=== PATIENT | female | born 1955 | race Caucasian/White ===

== ENCOUNTER 2019-03-15 13:58 | Inpatient (IN) ==
[2019-03-15 14:43] LABS: Basophils # 0.1 K/mcL (0.0-0.2); Basophils % 0.7 %; Eosinophils # 0.1 K/mcL (0.0-0.6); Eosinophils % 1.6 %; Hematocrit 40.8 % (35.3-44.9); Hemoglobin 12.8 g/dL (11.5-15.4); Immature Granulocytes % 0.1 % (0-4); Lymphocytes # 1.1 K/mcL (0.6-4.6); Lymphocytes % 16.4 %; Mean Corpuscular HGB Conc 31.4 g/dL (31.6-35.5); Mean Corpuscular Hemoglobin 27.1 pg (28.0-33.3); Mean Corpuscular Volume 86.3 fL (83.0-100.0); Mean Platelet Volume 11.6 fL (9.4-12.4); Monocytes # 0.5 K/mcL (0.0-1.3); Monocytes % 7.5 %; Neutrophils # 5.1 K/mcL (1.6-8.9); Platelet Count 207 K/mcL (140-400); Red Blood Count 4.73 M/mcL (3.82-4.97); Segmented Neutrophils % 73.7 %; White Blood Count 6.9 K/mcL (4.3-11.1)
[2019-03-15 15:23] LABS: BUN/Creatinine Ratio 17 (6-26); Blood Urea Nitrogen 16 mg/dL (8-23); Calcium 9.1 mg/dL (8.6-10.3); Carbon Dioxide 41 mEq/L (23-29); Chloride 89 mEq/L (98-107); Glucose 151 mg/dL (70-105); Osmolality,Calculated 290 (280-300); Potassium 2.1 mEq/L (3.5-5.1); Sodium 138 mEq/L (136-145); eGFR For African Americans > 60 (> 60); eGFR For Non-African Americans > 60 (> 60)
[2019-03-15] MEDS ORDERED: *HR* HYDROcodone/Acet 5/325 mg TABLET PO ONE (15:52)
[2019-03-15] MEDS ORDERED: Potassium Chloride 20 MEQ, Lidocaine 1% 2 ML in 0.9 % Sodium Chloride 250 ML IVPB ONE ×2 (16:11→19:00)
[2019-03-15] MEDS ORDERED: Naloxone 0.4 MG/ML INJ IVP PRN (17:40)
[2019-03-15 17:45] LABS: Magnesium 1.8 mg/dL (1.6-2.6)
[2019-03-15] MEDS ORDERED: Dextrose Gel 15 GM/37.5 ML TUBE PO PRN ×2 (17:55)
[2019-03-15] MEDS ORDERED: D5% in Water 1,000 ML IVC PRN (17:55)
[2019-03-15] MEDS ORDERED: *HR* Dextrose 50 % in Water (Syg) 50 ML SYRINGE IVP PRN (17:55)
[2019-03-15] MEDS: *HR* Dabigatran 150 MG CAPSULE PO SCH (20:48)
[2019-03-15 21:29] LABS: BUN/Creatinine Ratio 19 (6-26); Blood Urea Nitrogen 18 mg/dL (8-23); Calcium 8.7 mg/dL (8.6-10.3); Carbon Dioxide 40 mEq/L (23-29); Chloride 90 mEq/L (98-107); Glucose 226 mg/dL (70-105); Osmolality,Calculated 297 (280-300); Potassium 2.2 mEq/L (3.5-5.1); Sodium 139 mEq/L (136-145); eGFR For African Americans > 60 (> 60); eGFR For Non-African Americans 57 (> 60)
[2019-03-16] MEDS ORDERED: Potassium Chloride 20 MEQ, Lidocaine 1% 2 ML in 0.9 % Sodium Chloride 250 ML IVPB ONE (02:29)
[2019-03-16 07:19] LABS: Basophils % 0.6 %; Eosinophils # 0.2 K/mcL (0.0-0.6); Eosinophils % 2.9 %; Hematocrit 41.1 % (35.3-44.9); Hemoglobin 12.4 g/dL (11.5-15.4); Immature Granulocytes % 0.4 % (0-4); Lymphocytes # 1.1 K/mcL (0.6-4.6); Lymphocytes % 15.6 %; Mean Corpuscular HGB Conc 30.2 g/dL (31.6-35.5); Mean Corpuscular Hemoglobin 27.2 pg (28.0-33.3); Mean Corpuscular Volume 90.1 fL (83.0-100.0); Mean Platelet Volume 11.5 fL (9.4-12.4); Monocytes # 0.5 K/mcL (0.0-1.3); Monocytes % 6.7 %; Neutrophils # 5.3 K/mcL (1.6-8.9); Platelet Count 169 K/mcL (140-400); Red Blood Count 4.56 M/mcL (3.82-4.97); Segmented Neutrophils % 73.8 %; White Blood Count 7.2 K/mcL (4.3-11.1)
[2019-03-16 07:44] LABS: BUN/Creatinine Ratio 18 (6-26); Blood Urea Nitrogen 14 mg/dL (8-23); Calcium 8.7 mg/dL (8.6-10.3); Carbon Dioxide 39 mEq/L (23-29); Chloride 92 mEq/L (98-107); Glucose 110 mg/dL (70-105); Osmolality,Calculated 297 (280-300); Potassium 2.3 mEq/L (3.5-5.1); Sodium 143 mEq/L (136-145); eGFR For African Americans > 60 (> 60); eGFR For Non-African Americans > 60 (> 60)
[2019-03-16] MEDS ORDERED: Potassium Chloride 40 MEQ, Lidocaine 1% 2 ML in 0.9 % Sodium Chloride 500 ML IVPB ONE ×2 (07:58→16:33)
[2019-03-16] MEDS: Insulin LISPRO 300 UNITS/3 ML VIAL SQ SCH ×3 (08:48→15:16)
[2019-03-16] MEDS: *HR* Dabigatran 150 MG CAPSULE PO SCH ×2 (09:46→20:40)
[2019-03-16] MEDS ORDERED: Acetaminophen 325 MG TABLET PO PRN (15:25)
[2019-03-16 15:59] LABS: BUN/Creatinine Ratio 15 (6-26); Blood Urea Nitrogen 15 mg/dL (8-23); Calcium 8.5 mg/dL (8.6-10.3); Carbon Dioxide 40 mEq/L (23-29); Chloride 96 mEq/L (98-107); Glucose 224 mg/dL (70-105); Osmolality,Calculated 300 (280-300); Potassium 2.8 mEq/L (3.5-5.1); Sodium 141 mEq/L (136-145); eGFR For African Americans > 60 (> 60); eGFR For Non-African Americans 56 (> 60)
[2019-03-16] MEDS: *HR* HYDROcodone/Acet 5/325 mg TABLET PO PRN (17:06)
[2019-03-17] MEDS: *HR* HYDROcodone/Acet 5/325 mg TABLET PO PRN ×4 (00:24→20:32)
[2019-03-17] MEDS ORDERED: Potassium Chloride 40 MEQ, Lidocaine 1% 2 ML in 0.9 % Sodium Chloride 500 ML IVPB ONE ×2 (03:48→06:00)
[2019-03-17] MEDS ORDERED: Potassium Chloride Elixir 20 MEQ/15 ML UDC PO SCH (03:48)
[2019-03-17 06:32] LABS: Hematocrit 37.1 % (35.3-44.9); Hemoglobin 11.1 g/dL (11.5-15.4); Mean Corpuscular HGB Conc 29.9 g/dL (31.6-35.5); Mean Corpuscular Hemoglobin 27.3 pg (28.0-33.3); Mean Corpuscular Volume 91.4 fL (83.0-100.0); Mean Platelet Volume 11.2 fL (9.4-12.4); Platelet Count 155 K/mcL (140-400); Red Blood Count 4.06 M/mcL (3.82-4.97); White Blood Count 5.8 K/mcL (4.3-11.1)
[2019-03-17 06:59] LABS: BUN/Creatinine Ratio 19 (6-26); Blood Urea Nitrogen 14 mg/dL (8-23); Calcium 8.5 mg/dL (8.6-10.3); Carbon Dioxide 38 mEq/L (23-29); Chloride 96 mEq/L (98-107); Glucose 163 mg/dL (70-105); Osmolality,Calculated 298 (280-300); Potassium 3.1 mEq/L (3.5-5.1); Sodium 142 mEq/L (136-145); eGFR For African Americans > 60 (> 60); eGFR For Non-African Americans > 60 (> 60)
[2019-03-17] MEDS: *HR* Dabigatran 150 MG CAPSULE PO SCH ×2 (08:12→20:31)
[2019-03-17] MEDS: Insulin LISPRO 300 UNITS/3 ML VIAL SQ SCH ×3 (08:12→16:38)
[2019-03-17] MEDS: BuPROPion SR (12 HR) 150 MG TABLET PO SCH (08:12)
[2019-03-17] MEDS: Potassium Chloride Elixir 20 MEQ/15 ML UDC PO SCH (08:30)
[2019-03-17] MEDS ORDERED: metOLazone 5 MG TABLET PO SCH (12:45)
[2019-03-17] MEDS: Furosemide 40 MG TABLET PO SCH (13:03)
[2019-03-17 13:15] LABS: BUN/Creatinine Ratio 19 (6-26); Blood Urea Nitrogen 13 mg/dL (8-23); Calcium 8.6 mg/dL (8.6-10.3); Carbon Dioxide 36 mEq/L (23-29); Chloride 99 mEq/L (98-107); Glucose 189 mg/dL (70-105); Osmolality,Calculated 293 (280-300); Sodium 139 mEq/L (136-145); eGFR For African Americans > 60 (> 60); eGFR For Non-African Americans > 60 (> 60)
[2019-03-17 13:16] LABS: ABG Base Excess 10 mEq/L (-2 to 3); ABG HCO3 36 mEq/L (21-27); ABG Oxygen Saturation 93 % (95-98); ABG PCO2 56 mmHg (35-45); ABG PH 7.42 pH Units (7.32-7.45); ABG PO2 69 mmHg (85-104); ABG TCO2 38 mEq/L (20-26)
[2019-03-18] MEDS: *HR* HYDROcodone/Acet 5/325 mg TABLET PO PRN ×3 (01:10→11:28)
[2019-03-18 04:58] LABS: Hematocrit 38.1 % (35.3-44.9); Hemoglobin 11.5 g/dL (11.5-15.4); Mean Corpuscular HGB Conc 30.2 g/dL (31.6-35.5); Mean Corpuscular Hemoglobin 27.1 pg (28.0-33.3); Mean Corpuscular Volume 89.9 fL (83.0-100.0); Mean Platelet Volume 11.1 fL (9.4-12.4); Platelet Count 184 K/mcL (140-400); Red Blood Count 4.24 M/mcL (3.82-4.97); Red Cell Distribution Width 17.9 % (11.5-14.5); White Blood Count 6.2 K/mcL (4.3-11.1)
[2019-03-18] MEDS: Insulin LISPRO 300 UNITS/3 ML VIAL SQ SCH ×2 (07:53→11:44)
[2019-03-18] MEDS: *HR* Dabigatran 150 MG CAPSULE PO SCH (08:11)
[2019-03-18] MEDS: Potassium Chloride Elixir 20 MEQ/15 ML UDC PO SCH (08:11)
[2019-03-18] MEDS: Furosemide 40 MG TABLET PO SCH (08:11)
[2019-03-18] MEDS: BuPROPion SR (12 HR) 150 MG TABLET PO SCH (08:16)
[2019-03-18 08:53] LABS: BUN/Creatinine Ratio 18 (6-26); Blood Urea Nitrogen 14 mg/dL (8-23); Carbon Dioxide 40 mEq/L (23-29); Chloride 95 mEq/L (98-107); Glucose 109 mg/dL (70-105); Osmolality,Calculated 285 (280-300); Potassium 2.8 mEq/L (3.5-5.1); Sodium 137 mEq/L (136-145); eGFR For African Americans > 60 (> 60); eGFR For Non-African Americans > 60 (> 60)
[2019-03-18] MEDS ORDERED: Silvasorb 44.4 ML TUBE TP SCH (11:45)
[2019-03-18 11:56] VITALS: BP 125/58
[2019-03-18 12:11] LABS: BUN/Creatinine Ratio 18 (6-26); Blood Urea Nitrogen 14 mg/dL (8-23); Calcium 8.9 mg/dL (8.6-10.3); Carbon Dioxide 42 mEq/L (23-29); Chloride 91 mEq/L (98-107); Glucose 187 mg/dL (70-105); Osmolality,Calculated 289 (280-300); Potassium 3.3 mEq/L (3.5-5.1); Sodium 137 mEq/L (136-145); eGFR For African Americans > 60 (> 60); eGFR For Non-African Americans > 60 (> 60)
[2019-03-18] MEDS ORDERED: Potassium Chloride Elixir 20 MEQ/15 ML UDC PO SCH (12:34)
[2019-03-18] MEDS ORDERED: Potassium Chloride Elixir 20 MEQ/15 ML UDC PO ONE (12:48)
[2019-03-18] MEDS ORDERED: Potassium Effervescent 25 MEQ TABLET.EFF PO SCH (18:00)
[2019-03-19] MEDS ORDERED: Potassium Chloride Elixir 20 MEQ/15 ML UDC PO SCH (09:00)
== END 2019-03-18 16:04 | DRG 641 ==
LOC: EMEROOARM 13:58 → 3ANU 13:58 → SUATTDRO 17:00 → 2NENU 17:42
PROVIDERS: ADMIT Internal Medicine; ATTEND Family Medicine

== ENCOUNTER 2019-04-20 22:36 | Inpatient (IN) ==
[2019-04-20 23:33] LABS: Basophils # 0.1 K/mcL (0.0-0.2); Basophils % 0.7 %; Eosinophils # 0.2 K/mcL (0.0-0.6); Eosinophils % 2.9 %; Hematocrit 40.2 % (35.3-44.9); Hemoglobin 12.8 g/dL (11.5-15.4); Immature Granulocytes % 0.1 % (0-4); Lymphocytes # 0.9 K/mcL (0.6-4.6); Lymphocytes % 13.2 %; Mean Corpuscular HGB Conc 31.8 g/dL (31.6-35.5); Mean Corpuscular Hemoglobin 28.4 pg (28.0-33.3); Mean Corpuscular Volume 89.3 fL (83.0-100.0); Mean Platelet Volume 10.1 fL (9.4-12.4); Monocytes # 0.5 K/mcL (0.0-1.3); Monocytes % 7.8 %; Neutrophils # 5.2 K/mcL (1.6-8.9); Platelet Count 198 K/mcL (140-400); Red Cell Distribution Width 17.6 % (11.5-14.5); Segmented Neutrophils % 75.3 %
[2019-04-20 23:39] LABS: INR 1.1; Prothrombin Time 12.7 Seconds (9.4-12.1)
[2019-04-20 23:42] LABS: Activated Partial Thrombo Time 40.1 Seconds (26.0-36.0)
[2019-04-20 23:43] LABS: Bilirubin,Urine Small (Negative); Blood,Urine Negative (Negative); Clarity,Urine Clear (Clear); Color,Urine Yellow (Yellow); Glucose,Urine (UA) Normal (Normal); Ketones,Urine Negative (Negative); Leukocyte Esterase,Urine Negative (Negative); Nitrite,Urine Negative (Negative); Protein,Urine Negative (Neg-Trace); Specific Gravity,Urine 1.026 (1.010-1.025); Urobilinogen,Urine Normal (Normal)
[2019-04-20 23:54] LABS: Alanine Aminotransferase 7 Units/L (7-52); Albumin 3.2 g/dL (3.5-5.7); Albumin/Globulin Ratio 0.7 (1.1-2.2); Alkaline Phosphatase 63 Units/L (34-104); Aspartate Amino Transferase 15 Units/L (13-39); BUN/Creatinine Ratio 17 (6-26); Bilirubin,Direct 0.2 mg/dL (0.0-0.2); Bilirubin,Indirect 0.5 mg/dL (0.0-1.0); Bilirubin,Total 0.7 mg/dL (0.3-1.0); Blood Urea Nitrogen 14 mg/dL (8-23); Carbon Dioxide 30 mEq/L (23-29); Chloride 97 mEq/L (98-107); Globulin 4.3 g/dL (2.4-3.5); Glucose 121 mg/dL (70-105); Magnesium 1.7 mg/dL (1.6-2.6); Osmolality,Calculated 288 (280-300); Potassium 3.2 mEq/L (3.5-5.1); Sodium 138 mEq/L (136-145); Total Protein 7.5 g/dL (6.4-8.9); Troponin I < 0.03 ng/mL (< 0.04); eGFR For African Americans > 60 (> 60); eGFR For Non-African Americans > 60 (> 60)
[2019-04-21] MEDS ORDERED: Potassium Chloride Elixir 20 MEQ/15 ML UDC PO ONE ×2 (00:11→00:45)
[2019-04-21] MEDS ORDERED: Morphine Sulfate 2 MG/ML SYRINGE IVP PRN (05:05)
[2019-04-21] MEDS ORDERED: *HR* HYDROcodone/Acet 5/325 mg TABLET PO PRN (05:05)
[2019-04-21] MEDS ORDERED: Acetaminophen 325 MG TABLET PO PRN (05:09)
[2019-04-21] MEDS ORDERED: Methocarbamol 500 MG TABLET PO PRN (06:02)
[2019-04-21] MEDS: metOLazone 5 MG TABLET PO SCH (06:28)
[2019-04-21] MEDS ORDERED: Naloxone 0.4 MG/ML INJ IVP PRN (06:50)
[2019-04-21] MEDS ORDERED: *HR* OxyCODONE Immed Rel 5 MG TABLET PO PRN (06:50)
[2019-04-21] MEDS: Furosemide 40 MG TABLET PO SCH ×2 (08:01→16:35)
[2019-04-21] MEDS: *HR* Glimepiride 4 MG TABLET PO SCH (08:01)
[2019-04-21] MEDS: *HR* Dabigatran 150 MG CAPSULE PO SCH ×2 (08:01→20:14)
[2019-04-21 11:23] LABS: BUN/Creatinine Ratio 13 (6-26); Blood Urea Nitrogen 12 mg/dL (8-23); Calcium 9.1 mg/dL (8.6-10.3); Carbon Dioxide 35 mEq/L (23-29); Chloride 98 mEq/L (98-107); Glucose 121 mg/dL (70-105); Magnesium 1.8 mg/dL (1.6-2.6); Osmolality,Calculated 291 (280-300); Potassium 3.3 mEq/L (3.5-5.1); Sodium 140 mEq/L (136-145); eGFR For African Americans > 60 (> 60); eGFR For Non-African Americans > 60 (> 60)
[2019-04-21] MEDS: *HR* HYDROcodone/Acet 5/325 mg TABLET PO PRN ×2 (11:33→20:14)
[2019-04-21] MEDS: predniSONE 20 MG TABLET PO SCH (11:33)
[2019-04-21] MEDS: Insulin LISPRO 300 UNITS/3 ML VIAL SQ SCH ×3 (12:43→20:57)
[2019-04-21] MEDS ORDERED: Dextrose Gel 15 GM/37.5 ML TUBE PO PRN ×2 (20:45)
[2019-04-21] MEDS ORDERED: D5% in Water 1,000 ML IVC PRN (20:45)
[2019-04-21] MEDS ORDERED: *HR* Dextrose 50 % in Water (Syg) 50 ML SYRINGE IVP PRN (20:45)
[2019-04-22] MEDS: *HR* HYDROcodone/Acet 5/325 mg TABLET PO PRN ×5 (02:09→21:43)
[2019-04-22 06:43] LABS: Hematocrit 38.5 % (35.3-44.9); Hemoglobin 11.9 g/dL (11.5-15.4); Mean Corpuscular HGB Conc 30.9 g/dL (31.6-35.5); Mean Corpuscular Hemoglobin 28.2 pg (28.0-33.3); Mean Corpuscular Volume 91.2 fL (83.0-100.0); Mean Platelet Volume 10.2 fL (9.4-12.4); Platelet Count 178 K/mcL (140-400); Red Blood Count 4.22 M/mcL (3.82-4.97); Red Cell Distribution Width 17.1 % (11.5-14.5)
[2019-04-22 07:04] LABS: BUN/Creatinine Ratio 21 (6-26); Blood Urea Nitrogen 15 mg/dL (8-23); Calcium 9.2 mg/dL (8.6-10.3); Carbon Dioxide 37 mEq/L (23-29); Chloride 93 mEq/L (98-107); Glucose 87 mg/dL (70-105); Magnesium 1.8 mg/dL (1.6-2.6); Osmolality,Calculated 288 (280-300); Potassium 2.7 mEq/L (3.5-5.1); Sodium 139 mEq/L (136-145); eGFR For African Americans > 60 (> 60); eGFR For Non-African Americans > 60 (> 60)
[2019-04-22] MEDS ORDERED: Potassium Chloride Elixir 20 MEQ/15 ML UDC PO ONE (07:56)
[2019-04-22 08:09] LABS: C-Reactive Protein 17 mg/L (Less than 10)
[2019-04-22] MEDS: Insulin LISPRO 300 UNITS/3 ML VIAL SQ SCH ×4 (08:50→20:42)
[2019-04-22] MEDS: *HR* Glimepiride 4 MG TABLET PO SCH (10:46)
[2019-04-22] MEDS: Furosemide 40 MG TABLET PO SCH ×2 (10:46→17:02)
[2019-04-22] MEDS: *HR* Dabigatran 150 MG CAPSULE PO SCH ×2 (10:46→20:42)
[2019-04-22] MEDS: predniSONE 20 MG TABLET PO SCH (10:46)
[2019-04-22] MEDS: Piperacillin/Tazobactam 3.375 GM in 0.9 % Sodium Chloride Mini Bag 100 ML IVPB SCH ×2 (17:02→23:58)
[2019-04-22] MEDS: Acetaminophen 325 MG TABLET PO PRN (18:45)
[2019-04-23] MEDS: Acetaminophen 325 MG TABLET PO PRN (02:14)
[2019-04-23] MEDS: *HR* HYDROcodone/Acet 5/325 mg TABLET PO PRN ×4 (05:52→19:39)
[2019-04-23 07:32] LABS: BUN/Creatinine Ratio 23 (6-26); Blood Urea Nitrogen 20 mg/dL (8-23); Carbon Dioxide 38 mEq/L (23-29); Chloride 93 mEq/L (98-107); Glucose 86 mg/dL (70-105); Osmolality,Calculated 288 (280-300); Potassium 2.9 mEq/L (3.5-5.1); Sodium 138 mEq/L (136-145); eGFR For African Americans > 60 (> 60); eGFR For Non-African Americans > 60 (> 60)
[2019-04-23] MEDS: Insulin LISPRO 300 UNITS/3 ML VIAL SQ SCH ×4 (09:50→20:44)
[2019-04-23] MEDS: *HR* Dabigatran 150 MG CAPSULE PO SCH ×2 (10:09→19:39)
[2019-04-23] MEDS: Furosemide 40 MG TABLET PO SCH ×2 (10:10→16:04)
[2019-04-23] MEDS: *HR* Glimepiride 4 MG TABLET PO SCH (10:10)
[2019-04-23] MEDS: predniSONE 20 MG TABLET PO SCH (10:10)
[2019-04-23] MEDS: Piperacillin/Tazobactam 3.375 GM in 0.9 % Sodium Chloride Mini Bag 100 ML IVPB SCH ×2 (10:10→16:11)
[2019-04-24] MEDS: *HR* HYDROcodone/Acet 5/325 mg TABLET PO PRN ×4 (00:43→19:54)
[2019-04-24] MEDS: Piperacillin/Tazobactam 3.375 GM in 0.9 % Sodium Chloride Mini Bag 100 ML IVPB SCH ×2 (00:43→08:04)
[2019-04-24] MEDS: metOLazone 5 MG TABLET PO SCH (04:54)
[2019-04-24 06:23] LABS: Hematocrit 38.1 % (35.3-44.9); Hemoglobin 12.4 g/dL (11.5-15.4); Mean Corpuscular HGB Conc 32.5 g/dL (31.6-35.5); Mean Corpuscular Hemoglobin 28.6 pg (28.0-33.3); Mean Platelet Volume 10.8 fL (9.4-12.4); Platelet Count 193 K/mcL (140-400); Red Blood Count 4.33 M/mcL (3.82-4.97); Red Cell Distribution Width 17.1 % (11.5-14.5)
[2019-04-24 06:49] LABS: BUN/Creatinine Ratio 26 (6-26); Blood Urea Nitrogen 23 mg/dL (8-23); Carbon Dioxide 34 mEq/L (23-29); Chloride 97 mEq/L (98-107); Glucose 125 mg/dL (70-105); Osmolality,Calculated 297 (280-300); Potassium 3.4 mEq/L (3.5-5.1); Sodium 141 mEq/L (136-145); eGFR For African Americans > 60 (> 60); eGFR For Non-African Americans > 60 (> 60)
[2019-04-24] MEDS: Insulin LISPRO 300 UNITS/3 ML VIAL SQ SCH ×4 (08:04→19:54)
[2019-04-24] MEDS: Furosemide 40 MG TABLET PO SCH ×2 (08:04→17:22)
[2019-04-24] MEDS: *HR* Dabigatran 150 MG CAPSULE PO SCH ×2 (08:04→19:53)
[2019-04-24] MEDS: *HR* Glimepiride 4 MG TABLET PO SCH (08:04)
[2019-04-24] MEDS: predniSONE 20 MG TABLET PO SCH (08:04)
[2019-04-24] MEDS: Acetaminophen 325 MG TABLET PO PRN (23:32)
[2019-04-25] MEDS: *HR* HYDROcodone/Acet 5/325 mg TABLET PO PRN ×4 (03:48→20:39)
[2019-04-25 04:45] LABS: Hematocrit 39.9 % (35.3-44.9); Hemoglobin 12.8 g/dL (11.5-15.4); Mean Corpuscular HGB Conc 32.1 g/dL (31.6-35.5); Mean Corpuscular Hemoglobin 28.4 pg (28.0-33.3); Mean Corpuscular Volume 88.5 fL (83.0-100.0); Mean Platelet Volume 10.7 fL (9.4-12.4); Platelet Count 235 K/mcL (140-400); Red Blood Count 4.51 M/mcL (3.82-4.97); Red Cell Distribution Width 17.2 % (11.5-14.5); White Blood Count 9.5 K/mcL (4.3-11.1)
[2019-04-25 05:27] LABS: BUN/Creatinine Ratio 26 (6-26); Blood Urea Nitrogen 26 mg/dL (8-23); Calcium 9.3 mg/dL (8.6-10.3); Carbon Dioxide 36 mEq/L (23-29); Chloride 93 mEq/L (98-107); Glucose 105 mg/dL (70-105); Osmolality,Calculated 293 (280-300); Potassium 2.8 mEq/L (3.5-5.1); Sodium 139 mEq/L (136-145); eGFR For African Americans > 60 (> 60); eGFR For Non-African Americans 55 (> 60)
[2019-04-25] MEDS: Insulin LISPRO 300 UNITS/3 ML VIAL SQ SCH ×4 (08:14→20:40)
[2019-04-25] MEDS: predniSONE 20 MG TABLET PO SCH (09:32)
[2019-04-25] MEDS: levoFLOXacin 750 MG TABLET PO SCH (09:32)
[2019-04-25] MEDS: *HR* Glimepiride 4 MG TABLET PO SCH (09:32)
[2019-04-25] MEDS: *HR* Dabigatran 150 MG CAPSULE PO SCH ×2 (09:33→20:39)
[2019-04-25] MEDS: Furosemide 40 MG TABLET PO SCH ×2 (09:33→17:22)
[2019-04-25 15:47] LABS: Calcium 9.1 mg/dL (8.6-10.3)
[2019-04-26] MEDS: *HR* HYDROcodone/Acet 5/325 mg TABLET PO PRN ×4 (01:16→15:31)
[2019-04-26] MEDS: Insulin LISPRO 300 UNITS/3 ML VIAL SQ SCH ×2 (08:03→12:29)
[2019-04-26] MEDS: levoFLOXacin 750 MG TABLET PO SCH (08:23)
[2019-04-26] MEDS: predniSONE 20 MG TABLET PO SCH (08:23)
[2019-04-26] MEDS: *HR* Glimepiride 4 MG TABLET PO SCH (08:23)
[2019-04-26] MEDS: *HR* Dabigatran 150 MG CAPSULE PO SCH (08:23)
[2019-04-26 08:29] LABS: BUN/Creatinine Ratio 28 (6-26); Blood Urea Nitrogen 26 mg/dL (8-23); Calcium 8.7 mg/dL (8.6-10.3); Carbon Dioxide 34 mEq/L (23-29); Chloride 94 mEq/L (98-107); Glucose 123 mg/dL (70-105); Osmolality,Calculated 292 (280-300); Potassium 2.8 mEq/L (3.5-5.1); Sodium 138 mEq/L (136-145); eGFR For African Americans > 60 (> 60); eGFR For Non-African Americans > 60 (> 60)
[2019-04-26] MEDS: Furosemide 40 MG TABLET PO SCH (10:44)
[2019-04-26 14:23] LABS: BUN/Creatinine Ratio 25 (6-26); Blood Urea Nitrogen 27 mg/dL (8-23); Carbon Dioxide 33 mEq/L (23-29); Chloride 94 mEq/L (98-107); Glucose 226 mg/dL (70-105); Osmolality,Calculated 292 (280-300); Potassium 3.9 mEq/L (3.5-5.1); Sodium 135 mEq/L (136-145); eGFR For African Americans > 60 (> 60); eGFR For Non-African Americans 51 (> 60)
[2019-04-26 15:00] VITALS: BP 137/75
== END 2019-04-26 16:25 | DRG 554 ==
LOC: EMEROOARM 22:36 → 3NENU 22:36 → SUATTDRO 04-21 02:16 → 3NENU 04-21 03:00 → SUATTDRO 04-23 13:03
PROVIDERS: ADMIT Internal Medicine; ATTEND Student in an Organized Health Care Education/Training Program

== ENCOUNTER 2020-05-27 14:58 | Inpatient (IN) ==
[2020-05-27] MEDS ORDERED: Isovue-370 500 ML BOTTLE IVP ONE (15:54)
[2020-05-27] MEDS ORDERED: Piperacillin/Tazobactam 3.375 GM in 0.9 % Sodium Chloride Mini Bag 100 ML IVPB ONE (15:54)
[2020-05-27] MEDS ORDERED: Vancomycin 0 MG in 0.9 % Sodium Chloride 250 ML IVPB SCH (16:00)
[2020-05-27] MEDS ORDERED: Vancomycin 2,000 MG/520 ML IV.SOLN IVPB ONE (16:20)
[2020-05-27 16:21] LABS: Basophils # 0.1 K/mcL (0.0-0.2); Eosinophils # 0.3 K/mcL (0.0-0.6); Eosinophils % 5.5 %; Hematocrit 37.2 % (35.3-44.9); Hemoglobin 10.8 g/dL (11.5-15.4); Immature Granulocytes % 0.2 % (0-4); Lymphocytes # 0.5 K/mcL (0.6-4.6); Lymphocytes % 7.6 %; Mean Corpuscular Hemoglobin 25.4 pg (28.0-33.3); Mean Corpuscular Volume 87.5 fL (83.0-100.0); Mean Platelet Volume 10.7 fL (9.4-12.4); Monocytes # 0.5 K/mcL (0.0-1.3); Monocytes % 8.4 %; Neutrophils # 4.8 K/mcL (1.6-8.9); Platelet Count 185 K/mcL (140-400); Red Blood Count 4.25 M/mcL (3.82-4.97); Red Cell Distribution Width 16.9 % (11.5-14.5); Segmented Neutrophils % 77.3 %; White Blood Count 6.2 K/mcL (4.3-11.1)
[2020-05-27 16:36] LABS: BUN/Creatinine Ratio 18 (6-26); Blood Urea Nitrogen 15 mg/dL (8-23); Carbon Dioxide 35 mEq/L (23-29); Chloride 103 mEq/L (98-107); Glucose 118 mg/dL (70-105); Osmolality,Calculated 288 (280-300); Potassium 4.5 mEq/L (3.5-5.1); Sodium 138 mEq/L (136-145); eGFR For African Americans > 60 (> 60); eGFR For Non-African Americans > 60 (> 60)
[2020-05-27] MEDS ORDERED: Ondansetron 4 MG/2 ML VIAL IVP ONE (17:11)
[2020-05-27] MEDS ORDERED: *HR* HYDROmorphone (PF) 1 MG/ML SYRINGE IVP ONE (17:11)
[2020-05-27 17:22] LABS: C-Reactive Protein 28 mg/L (Less than 10)
[2020-05-27] MEDS ORDERED: Naloxone 0.4 MG/ML INJ IVP PRN (17:31)
[2020-05-27] MEDS ORDERED: Acetaminophen 325 MG TABLET PO PRN (17:31)
[2020-05-27] MEDS ORDERED: *HR* Dextrose 50 % in Water (Vial) 50 ML VIAL IVP PRN (17:32)
[2020-05-27] MEDS ORDERED: Dextrose Gel 15 GM/37.5 ML TUBE PO PRN ×2 (17:32)
[2020-05-27] MEDS ORDERED: D5% in Water 1,000 ML IVC PRN (17:32)
[2020-05-27 18:33] LABS: Estimated Average Glucose 157 mg/dl; Hemoglobin A1C 7.1 %
[2020-05-27] MEDS: Insulin LISPRO 300 UNITS/3 ML VIAL SUBQ SCH (21:28)
[2020-05-27] MEDS: *HR* Heparin 5,000 UNIT/ML VIAL SQ SCH (22:29)
[2020-05-27] MEDS: Ketorolac 30 MG/ML VIAL IVP PRN (22:29)
[2020-05-28] MEDS ORDERED: Piperacillin/Tazobactam 3.375 GM in 0.9 % Sodium Chloride Mini Bag 100 ML IVPB SCH
[2020-05-28 02:27] LABS: Basophils % 0.7 %; Eosinophils # 0.2 K/mcL (0.0-0.6); Hematocrit 35.6 % (35.3-44.9); Hemoglobin 10.2 g/dL (11.5-15.4); Immature Granulocytes % 0.3 % (0-4); Lymphocytes # 0.6 K/mcL (0.6-4.6); Lymphocytes % 10.1 %; Mean Corpuscular HGB Conc 28.7 g/dL (31.6-35.5); Mean Corpuscular Hemoglobin 25.7 pg (28.0-33.3); Mean Corpuscular Volume 89.7 fL (83.0-100.0); Mean Platelet Volume 11.3 fL (9.4-12.4); Monocytes # 0.5 K/mcL (0.0-1.3); Monocytes % 8.5 %; Neutrophils # 4.6 K/mcL (1.6-8.9); Platelet Count 183 K/mcL (140-400); Red Blood Count 3.97 M/mcL (3.82-4.97); Red Cell Distribution Width 16.8 % (11.5-14.5); Segmented Neutrophils % 76.4 %
[2020-05-28 02:45] LABS: Blood Urea Nitrogen 15 mg/dL (8-23); Calcium 8.5 mg/dL (8.6-10.3); Carbon Dioxide 30 mEq/L (23-29); Chloride 103 mEq/L (98-107); Glucose 174 mg/dL (70-105); Osmolality,Calculated 293 (280-300); Potassium 4.4 mEq/L (3.5-5.1); Sodium 139 mEq/L (136-145)
[2020-05-28 03:19] LABS: Hypochromasia Present (Not Present); Platelet Estimate Normal (Normal)
[2020-05-28 04:14] LABS: BUN/Creatinine Ratio 16 (6-26); eGFR For African Americans > 60 (> 60); eGFR For Non-African Americans 59 (> 60)
[2020-05-28] MEDS: *HR* Heparin 5,000 UNIT/ML VIAL SQ SCH ×2 (05:17→12:43)
[2020-05-28] MEDS: Piperacillin/Tazobactam 3.375 GM in 0.9 % Sodium Chloride Mini Bag 100 ML IVPB SCH ×3 (05:41→22:06)
[2020-05-28] MEDS ORDERED: Vancomycin 2,000 MG/520 ML IV.SOLN IVPB SCH (06:00)
[2020-05-28] MEDS: Insulin LISPRO 300 UNITS/3 ML VIAL SUBQ SCH ×4 (09:39→22:07)
[2020-05-28] MEDS: Apixaban 5 MG TABLET PO SCH (22:05)
[2020-05-28] MEDS: Ketorolac 30 MG/ML VIAL IVP PRN (22:05)
[2020-05-29 02:38] LABS: Basophils % 0.9 %
[2020-05-29 02:40] LABS: Eosinophils # 0.3 K/mcL (0.0-0.6); Eosinophils % 6.8 %; Hematocrit 33.8 % (35.3-44.9); Hemoglobin 9.9 g/dL (11.5-15.4); Immature Granulocytes % 0.2 % (0-4); Lymphocytes % 16.2 %; Mean Corpuscular HGB Conc 29.3 g/dL (31.6-35.5); Mean Corpuscular Hemoglobin 26.1 pg (28.0-33.3); Mean Corpuscular Volume 88.9 fL (83.0-100.0); Mean Platelet Volume 10.9 fL (9.4-12.4); Monocytes # 0.5 K/mcL (0.0-1.3); Monocytes % 10.5 %; Platelet Count 147 K/mcL (140-400); Red Cell Distribution Width 16.8 % (11.5-14.5); Segmented Neutrophils % 65.4 %; White Blood Count 4.6 K/mcL (4.3-11.1)
[2020-05-29 02:42] LABS: Lymphocytes # 0.8 K/mcL (0.6-4.6)
[2020-05-29 02:43] LABS: Hypochromasia Present (Not Present); Platelet Estimate Normal (Normal)
[2020-05-29 02:55] LABS: BUN/Creatinine Ratio 20 (6-26); Blood Urea Nitrogen 21 mg/dL (8-23); Calcium 8.2 mg/dL (8.6-10.3); Carbon Dioxide 31 mEq/L (23-29); Chloride 104 mEq/L (98-107); Glucose 134 mg/dL (70-105); Osmolality,Calculated 295 (280-300); Sodium 140 mEq/L (136-145); eGFR For African Americans > 60 (> 60); eGFR For Non-African Americans 53 (> 60)
[2020-05-29] MEDS: Piperacillin/Tazobactam 3.375 GM in 0.9 % Sodium Chloride Mini Bag 100 ML IVPB SCH ×2 (05:23→13:03)
[2020-05-29] MEDS: Apixaban 5 MG TABLET PO SCH (08:22)
[2020-05-29] MEDS: Insulin LISPRO 300 UNITS/3 ML VIAL SUBQ SCH ×2 (08:26→13:03)
[2020-05-29] MEDS ORDERED: Furosemide 40 MG TABLET PO SCH (09:00)
[2020-05-29] MEDS: Ketorolac 30 MG/ML VIAL IVP PRN (09:56)
[2020-05-29 11:01] VITALS: BP 142/79
== END 2020-05-29 14:29 | disposition home health service (06) | DRG 638 ==
LOC: EMEROOARM 14:58 → 3NENU 14:58 → SUATTDRO 18:17 → 3NENU 20:14
PROVIDERS: ADMIT Internal Medicine; ATTEND Internal Medicine

== ENCOUNTER 2020-06-22 13:35 | Inpatient (IN) ==
[2020-06-22 14:26] LABS: Immature Granulocytes % 0.3 % (0-4); Red Blood Count 4.02 M/mcL (3.82-4.97)
[2020-06-22 14:28] LABS: Basophils # 0.1 K/mcL (0.0-0.2); Basophils % 0.8 %; Eosinophils # 0.2 K/mcL (0.0-0.6); Eosinophils % 2.4 %; Hematocrit 35.5 % (35.3-44.9); Hemoglobin 10.2 g/dL (11.5-15.4); Lymphocytes # 0.7 K/mcL (0.6-4.6); Lymphocytes % 10.9 %; Mean Corpuscular HGB Conc 28.7 g/dL (31.6-35.5); Mean Corpuscular Hemoglobin 25.4 pg (28.0-33.3); Mean Corpuscular Volume 88.3 fL (83.0-100.0); Mean Platelet Volume 10.4 fL (9.4-12.4); Monocytes # 0.5 K/mcL (0.0-1.3); Platelet Count 172 K/mcL (140-400); Red Cell Distribution Width 17.7 % (11.5-14.5); Segmented Neutrophils % 77.6 %; White Blood Count 6.4 K/mcL (4.3-11.1)
[2020-06-22 14:41] LABS: VBG HCO3 34 mEq/L (21-27); VBG PCO2 60 mmHg (41-51); VBG PH 7.37 pH Units (7.32-7.42); VBG PO2 67 mmHg (25-50)
[2020-06-22 14:47] LABS: BUN/Creatinine Ratio 22 (6-26); Blood Urea Nitrogen 18 mg/dL (8-23); Calcium 8.6 mg/dL (8.6-10.3); Carbon Dioxide 35 mEq/L (23-29); Chloride 98 mEq/L (98-107); Glucose 160 mg/dL (70-105); Osmolality,Calculated 293 (280-300); Potassium 3.5 mEq/L (3.5-5.1); Sodium 139 mEq/L (136-145); Troponin I < 0.03 ng/mL (< 0.04); eGFR For African Americans > 60 (> 60); eGFR For Non-African Americans > 60 (> 60)
[2020-06-22 14:56] LABS: Hypochromasia Present (Not Present)
[2020-06-22 14:57] LABS: Stomatocytes 1+ (Not Present); Target Cells 1+ (Not Present)
[2020-06-22 14:58] LABS: Large Platelets Present (Not Present)
[2020-06-22] MEDS ORDERED: Furosemide 40 MG/4 ML VIAL IVP ONE (15:56)
[2020-06-22] MEDS ORDERED: Naloxone 0.4 MG/ML INJ IVP PRN (16:38)
[2020-06-22] MEDS ORDERED: Ondansetron 4 MG/2 ML VIAL IVP PRN (16:38)
[2020-06-22] MEDS ORDERED: D5% in Water 1,000 ML IVC PRN (18:09)
[2020-06-22] MEDS ORDERED: *HR* Dextrose 50 % in Water (Vial) 50 ML VIAL IVP PRN (18:09)
[2020-06-22] MEDS ORDERED: Dextrose Gel 15 GM/37.5 ML TUBE PO PRN ×2 (18:09)
[2020-06-22] MEDS: Furosemide 40 MG/4 ML VIAL IVP SCH (20:01)
[2020-06-22] MEDS: Gabapentin 300 MG CAPSULE PO SCH (20:01)
[2020-06-22] MEDS: Apixaban 5 MG TABLET PO SCH (20:01)
[2020-06-22] MEDS: Insulin LISPRO 300 UNITS/3 ML VIAL SUBQ SCH (21:55)
[2020-06-23] MEDS: *HR* HYDROcodone/Acet 5/325 mg TABLET PO PRN ×2 (00:12→15:34)
[2020-06-23] MEDS: Piperacillin/Tazobactam 3.375 GM in 0.9 % Sodium Chloride Mini Bag 100 ML IVPB SCH ×3 (00:13→15:34)
[2020-06-23 06:03] LABS: Red Cell Distribution Width 18.2 % (11.5-14.5)
[2020-06-23 06:05] LABS: Basophils # 0.1 K/mcL (0.0-0.2); Basophils % 1.1 %; Eosinophils # 0.1 K/mcL (0.0-0.6); Hematocrit 35.6 % (35.3-44.9); Hemoglobin 10.1 g/dL (11.5-15.4); Immature Granulocytes % 0.4 % (0-4); Lymphocytes % 18.5 %; Mean Corpuscular HGB Conc 28.4 g/dL (31.6-35.5); Mean Corpuscular Hemoglobin 25.4 pg (28.0-33.3); Mean Corpuscular Volume 89.4 fL (83.0-100.0); Monocytes # 0.8 K/mcL (0.0-1.3); Monocytes % 13.6 %; Neutrophils # 3.5 K/mcL (1.6-8.9); Platelet Count 150 K/mcL (140-400); Red Blood Count 3.98 M/mcL (3.82-4.97); Segmented Neutrophils % 64.4 %; White Blood Count 5.5 K/mcL (4.3-11.1)
[2020-06-23 06:28] LABS: BUN/Creatinine Ratio 19 (6-26); Blood Urea Nitrogen 16 mg/dL (8-23); Calcium 8.8 mg/dL (8.6-10.3); Carbon Dioxide 37 mEq/L (23-29); Chloride 98 mEq/L (98-107); Glucose 96 mg/dL (70-105); Osmolality,Calculated 291 (280-300); Potassium 3.4 mEq/L (3.5-5.1); Sodium 140 mEq/L (136-145); eGFR For African Americans > 60 (> 60); eGFR For Non-African Americans > 60 (> 60)
[2020-06-23 06:36] LABS: Anisocytosis 1+ (Not Present); Hypochromasia Present (Not Present)
[2020-06-23 06:37] LABS: Platelet Estimate Normal (Normal); Target Cells 1+ (Not Present)
[2020-06-23] MEDS ORDERED: Potassium Chloride 40 MEQ, Lidocaine 1% 2 ML in 0.9 % Sodium Chloride 500 ML IVPB ONE (08:44)
[2020-06-23] MEDS: BuPROPion SR (12 HR) 150 MG TABLET PO SCH (08:50)
[2020-06-23] MEDS: Furosemide 40 MG/4 ML VIAL IVP SCH ×2 (08:50→20:12)
[2020-06-23] MEDS: Acetaminophen 325 MG TABLET PO PRN (08:50)
[2020-06-23] MEDS: Insulin LISPRO 300 UNITS/3 ML VIAL SUBQ SCH ×4 (08:50→21:03)
[2020-06-23] MEDS: Gabapentin 300 MG CAPSULE PO SCH ×4 (08:50→20:00)
[2020-06-23] MEDS: Apixaban 5 MG TABLET PO SCH ×2 (08:50→20:00)
[2020-06-24] MEDS: Piperacillin/Tazobactam 3.375 GM in 0.9 % Sodium Chloride Mini Bag 100 ML IVPB SCH ×3 (00:15→17:00)
[2020-06-24] MEDS: *HR* HYDROcodone/Acet 5/325 mg TABLET PO PRN ×3 (01:39→21:03)
[2020-06-24 06:03] LABS: Red Cell Distribution Width 17.7 % (11.5-14.5)
[2020-06-24 06:04] LABS: Basophils # 0.1 K/mcL (0.0-0.2); Basophils % 0.8 %; Eosinophils # 0.3 K/mcL (0.0-0.6); Eosinophils % 5.4 %; Hemoglobin 9.4 g/dL (11.5-15.4); Immature Granulocytes % 0.3 % (0-4); Lymphocytes # 0.9 K/mcL (0.6-4.6); Lymphocytes % 14.3 %; Mean Corpuscular HGB Conc 28.5 g/dL (31.6-35.5); Mean Corpuscular Hemoglobin 25.1 pg (28.0-33.3); Mean Corpuscular Volume 88.2 fL (83.0-100.0); Mean Platelet Volume 10.3 fL (9.4-12.4); Monocytes # 0.7 K/mcL (0.0-1.3); Monocytes % 12.1 %; Neutrophils # 4.1 K/mcL (1.6-8.9); Platelet Count 165 K/mcL (140-400); Red Blood Count 3.74 M/mcL (3.82-4.97); Segmented Neutrophils % 67.1 %; White Blood Count 6.1 K/mcL (4.3-11.1)
[2020-06-24 06:38] LABS: BUN/Creatinine Ratio 20 (6-26); Blood Urea Nitrogen 18 mg/dL (8-23); Calcium 8.8 mg/dL (8.6-10.3); Carbon Dioxide 40 mEq/L (23-29); Chloride 96 mEq/L (98-107); Glucose 130 mg/dL (70-105); Magnesium 1.9 mg/dL (1.6-2.6); Osmolality,Calculated 296 (280-300); Potassium 3.5 mEq/L (3.5-5.1); Sodium 141 mEq/L (136-145); Thyroid Stimulating Hormone 2.774 mcIU/mL (0.340-5.600); eGFR For African Americans > 60 (> 60); eGFR For Non-African Americans > 60 (> 60)
[2020-06-24] MEDS: Gabapentin 300 MG CAPSULE PO SCH ×4 (09:09→21:03)
[2020-06-24] MEDS: Apixaban 5 MG TABLET PO SCH ×2 (09:09→21:03)
[2020-06-24] MEDS: Furosemide 40 MG/4 ML VIAL IVP SCH ×2 (09:10→21:04)
[2020-06-24] MEDS: BuPROPion SR (12 HR) 150 MG TABLET PO SCH (09:10)
[2020-06-24] MEDS: Insulin LISPRO 300 UNITS/3 ML VIAL SUBQ SCH ×4 (09:10→21:02)
[2020-06-24 09:44] LABS: Estimated Average Glucose 148 mg/dl; Hemoglobin A1C 6.8 %
[2020-06-24] MEDS: Acetaminophen 325 MG TABLET PO PRN (17:00)
[2020-06-25] MEDS: Piperacillin/Tazobactam 3.375 GM in 0.9 % Sodium Chloride Mini Bag 100 ML IVPB SCH ×3 (00:12→16:48)
[2020-06-25 01:33] LABS: Immature Granulocytes % 0.4 % (0-4)
[2020-06-25 01:35] LABS: Basophils # 0.1 K/mcL (0.0-0.2); Basophils % 1.3 %; Eosinophils # 0.3 K/mcL (0.0-0.6); Eosinophils % 5.6 %; Hematocrit 33.6 % (35.3-44.9); Hemoglobin 9.6 g/dL (11.5-15.4); Lymphocytes # 0.7 K/mcL (0.6-4.6); Mean Corpuscular HGB Conc 28.6 g/dL (31.6-35.5); Mean Corpuscular Hemoglobin 25.4 pg (28.0-33.3); Mean Corpuscular Volume 88.9 fL (83.0-100.0); Mean Platelet Volume 10.2 fL (9.4-12.4); Monocytes # 0.5 K/mcL (0.0-1.3); Monocytes % 11.1 %; Neutrophils # 3.1 K/mcL (1.6-8.9); Platelet Count 146 K/mcL (140-400); Red Blood Count 3.78 M/mcL (3.82-4.97); Red Cell Distribution Width 17.6 % (11.5-14.5); Segmented Neutrophils % 66.6 %; White Blood Count 4.7 K/mcL (4.3-11.1)
[2020-06-25 01:41] LABS: Anisocytosis 1+ (Not Present); Hypochromasia Present (Not Present); Platelet Estimate Normal (Normal)
[2020-06-25 01:51] LABS: BUN/Creatinine Ratio 21 (6-26); Blood Urea Nitrogen 21 mg/dL (8-23); Calcium 8.6 mg/dL (8.6-10.3); Carbon Dioxide 40 mEq/L (23-29); Chloride 96 mEq/L (98-107); Glucose 135 mg/dL (70-105); Magnesium 1.8 mg/dL (1.6-2.6); Osmolality,Calculated 293 (280-300); Phosphorous 3.6 mg/dL (2.7-4.5); Potassium 3.5 mEq/L (3.5-5.1); Sodium 139 mEq/L (136-145); eGFR For African Americans > 60 (> 60); eGFR For Non-African Americans 54 (> 60)
[2020-06-25] MEDS: *HR* HYDROcodone/Acet 5/325 mg TABLET PO PRN ×2 (04:05→09:39)
[2020-06-25 08:13] LABS: ABG Base Excess 16 mEq/L (-2 to 3); ABG HCO3 44 mEq/L (21-27); ABG Oxygen Saturation 96 % (95-98); ABG PCO2 77 mmHg (35-45); ABG PH 7.37 pH Units (7.32-7.45); ABG PO2 87 mmHg (85-104); ABG TCO2 47 mEq/L (20-26)
[2020-06-25] MEDS ORDERED: Furosemide 40 MG TABLET PO SCH (09:00)
[2020-06-25] MEDS: Gabapentin 300 MG CAPSULE PO SCH ×4 (09:39→19:38)
[2020-06-25] MEDS: Multivit/Ca/Min/Fe/FA 1 TAB TABLET PO SCH (09:39)
[2020-06-25] MEDS: Apixaban 5 MG TABLET PO SCH ×2 (09:39→19:38)
[2020-06-25] MEDS: BuPROPion SR (12 HR) 150 MG TABLET PO SCH (09:39)
[2020-06-25] MEDS: Insulin LISPRO 300 UNITS/3 ML VIAL SUBQ SCH ×4 (09:40→20:54)
[2020-06-25] MEDS: Acetaminophen 325 MG TABLET PO PRN (14:48)
[2020-06-25] MEDS ORDERED: Ipratropium/Albuterol Neb 3 ML IH PRN (20:30)
[2020-06-26] MEDS: *HR* HYDROcodone/Acet 5/325 mg TABLET PO PRN ×3 (01:30→22:10)
[2020-06-26] MEDS: Insulin LISPRO 300 UNITS/3 ML VIAL SUBQ SCH ×4 (07:49→20:31)
[2020-06-26 09:32] LABS: Basophils # 0.1 K/mcL (0.0-0.2); Eosinophils # 0.2 K/mcL (0.0-0.6); Hemoglobin 9.5 g/dL (11.5-15.4); Mean Corpuscular HGB Conc 27.9 g/dL (31.6-35.5); Mean Corpuscular Hemoglobin 25.3 pg (28.0-33.3); Mean Corpuscular Volume 90.4 fL (83.0-100.0); Mean Platelet Volume 10.5 fL (9.4-12.4); Platelet Count 150 K/mcL (140-400); Red Blood Count 3.76 M/mcL (3.82-4.97); Red Cell Distribution Width 17.5 % (11.5-14.5); White Blood Count 4.7 K/mcL (4.3-11.1)
[2020-06-26] MEDS: BuPROPion SR (12 HR) 150 MG TABLET PO SCH (09:59)
[2020-06-26] MEDS: Apixaban 5 MG TABLET PO SCH ×2 (10:00→20:31)
[2020-06-26] MEDS: Multivit/Ca/Min/Fe/FA 1 TAB TABLET PO SCH (10:00)
[2020-06-26] MEDS: Gabapentin 300 MG CAPSULE PO SCH ×4 (10:00→20:31)
[2020-06-26 10:07] LABS: BUN/Creatinine Ratio 26 (6-26); Blood Urea Nitrogen 19 mg/dL (8-23); Calcium 8.9 mg/dL (8.6-10.3); Carbon Dioxide 42 mEq/L (23-29); Chloride 95 mEq/L (98-107); Glucose 128 mg/dL (70-105); Magnesium 2.2 mg/dL (1.6-2.6); Osmolality,Calculated 288 (280-300); Sodium 137 mEq/L (136-145); eGFR For African Americans > 60 (> 60); eGFR For Non-African Americans > 60 (> 60)
[2020-06-26 12:34] LABS: Lymphocytes # 0.4 K/mcL (0.6-4.6); Monocytes # 0.3 K/mcL (0.0-1.3); Neutrophils # 3.8 K/mcL (1.6-8.9)
[2020-06-26 12:35] LABS: Hypochromasia Present (Not Present); Platelet Estimate Normal (Normal)
[2020-06-26] MEDS: Acetaminophen 325 MG TABLET PO PRN ×2 (15:34→23:56)
[2020-06-27 02:56] LABS: BUN/Creatinine Ratio 29 (6-26); Blood Urea Nitrogen 20 mg/dL (8-23); Calcium 8.7 mg/dL (8.6-10.3); Carbon Dioxide 39 mEq/L (23-29); Chloride 97 mEq/L (98-107); Glucose 157 mg/dL (70-105); Magnesium 2.2 mg/dL (1.6-2.6); Osmolality,Calculated 290 (280-300); Phosphorous 2.5 mg/dL (2.7-4.5); Potassium 4.5 mEq/L (3.5-5.1); Sodium 137 mEq/L (136-145); eGFR For African Americans > 60 (> 60); eGFR For Non-African Americans > 60 (> 60)
[2020-06-27] MEDS: *HR* HYDROcodone/Acet 5/325 mg TABLET PO PRN ×2 (04:04→12:08)
[2020-06-27] MEDS: Apixaban 5 MG TABLET PO SCH (08:57)
[2020-06-27] MEDS: Gabapentin 300 MG CAPSULE PO SCH ×2 (08:57→12:08)
[2020-06-27] MEDS: Multivit/Ca/Min/Fe/FA 1 TAB TABLET PO SCH (08:58)
[2020-06-27] MEDS: BuPROPion SR (12 HR) 150 MG TABLET PO SCH (08:58)
[2020-06-27] MEDS: Insulin LISPRO 300 UNITS/3 ML VIAL SUBQ SCH ×2 (08:59→12:08)
[2020-06-27] MEDS: Acetaminophen 325 MG TABLET PO PRN (10:02)
[2020-06-27 11:48] VITALS: BP 122/79
[2020-06-27 12:52] LABS: Adenovirus Not Detected (Not Detect); Bordetella Pertussis Not Detected (Not Detect); Chlamydophila pneumoniae Not Detected (Not Detect); Coronavirus 229E Not Detected (Not Detect); Coronavirus HKU1 Not Detected (Not Detect); Coronavirus NL63 Not Detected (Not Detect); Coronavirus OC43 Not Detected (Not Detect); Human Metapneumovirus Not Detected (Not Detect); Human Rhinovirus/Enterovirus Not Detected (Not Detect); Influenza A Subtype 2009 H1 Not Detected (Not Detect); Influenza B Not Detected (Not Detect); Mycoplasma pneumoniae Not Detected (Not Detect); Parainfluenza Virus 1 Not Detected (Not Detect); Parainfluenza Virus 2 Not Detected (Not Detect); Parainfluenza Virus 3 Not Detected (Not Detect); Parainfluenza Virus 4 Not Detected (Not Detect); Respiratory Syncytial Virus Not Detected (Not Detect); SARS-CoV-2 Not Detected (Not Detect)
== END 2020-06-27 17:15 | DRG 291 ==
LOC: EMEROOARM 13:35 → 3ANU 13:35 → SUATTDRO 17:37 → 3ANU 18:44 → SUATTDRO 06-23 20:57
PROVIDERS: ADMIT Family Medicine; ATTEND Internal Medicine